=== PATIENT | male | born 1975 | race Caucasian/White ===

== ENCOUNTER 2025-02-26 09:35 | Outpatient (AMB) | payer OTHER, SELFPAY ==
--- OUTSIDE RECORDS SUMMARY | 2024-01-18 09:53 | XMS_ITS | Encounter Summary ---
Author Organization [facility] Address [address] [place] [address] Care Team Providers Care Debone Supervisor Name Role Phone Pcp, No Primary Care Provider Unavailabl e Encounter Details Date Type Department Care Team (Late st Contact Info) Description 01/18/2024 9:53 AM EDT Hospital Encounter [facility] [address] [place] [phone] Neftali Zacarias MD [address] [place], [place] [phone] Social History Tobacco Use Types Packs/Day Years [...] acute right shoulder abnormality. us Armand Valencia RENAL DIALYSIS TECHNICIAN IMG DIAGNOSTIC KIMBERLY GING ORDERABLES Final Result documented in this encounter Visit Diagnoses Not on filedocumented in this encounter Care Teams Debone Supervisor Relationship Specialty Start Date End Date Pcp, No PCP - General General Medicine 01/18/24 documented as of this encounter
--- NOTE | 2025-02-26 09:39 | MHC.PC.OV ---
Vital Signs 02/26/25 09:43 02/26/25 09:45 Height 5 ft 11.65 in Weight 208 lb 8 oz BMI 28.6 BP 124/92 H 122/90 H Blood Pressure Location Rt brachial Rt brachial Position Sitting Sitting Respiration 14 Pulse 73 Pulse Source Pulse Oximeter Temp 98.1 F Temp Source Oral Pulse Oximetry (%) 98 Oxygen Delivery Method Room Air Intake Visit Reasons: DEMONSTRATOR SALES/PErequest Intake Note: New patient visit. Solar Consultant Required: No Tobacco use date assessed: 02/26/25 Dental Screening Dental Screen Date: 02/26/25 Did you have a dental visit in the last 12 months?: No Did you have a dental problem in the last 6 months where you did not have access to dental care?: No Was dental information given to patient?: Patient has dentist HPI HPI Comments History of Present Illness Details The patient is a 49 year old male with a past medical history of hypertension, hyperlipidemia, neck pain presenting to [facility]. Transferring from [facility] Dr Pennington (previously [facility]) CV: on amlodipine, hctz, simvastatin. 122/90. Denies chest pain, shortness of breath. 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 Sometimes getting lightheaded. He discussed stress testing with last pcp but never got scheduled MSK: s/p cervical fusion 2016 Dr Long. stable Colonoscopy 03/2023 due 2032 -Dr Tillman Tdap 03/2023 ROS see HPI PHYSICAL EXAM: GENERAL: Alert and oriented x 3. NAD EYES: EOMI. Anicteric. HENT: Moist mucous membranes. No scleral icterus. No cervical lymphadenopathy. LUNGS: Clear to auscultation bilaterally. CARDIOVASCULAR: Regular rate and rhythm. No murmur. No JVD. ABDOMEN: Soft, non-tender +bs EXTREMITIES: No edema. Non-tender. SKIN: No rashes or lesions. Warm. NEUROLOGIC: No focal neurological deficits. CN II-XII grossly intact PSYCHIATRIC: Cooperative. 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 Current occupational exposures/hazards: No Cognitive needs: No Hearing needs: No Vision needs: No Questionnaire Thrive Questionnaire Date Thrive assessed: 02/23/25 I am a: Patient What is your living situation today?: I have a steady place to live Within the past 12 months, did the food you bought not last and you didn't have the money to get more?: Never true Within the past 12 months, did you worry whether your food would run out before you got money to buy more?: Never true Do you have trouble paying for medicines?: No Do you have trouble getting transportation to medical appointments?: No Do you have trouble paying your heating and electricity bill?: No Do you have trouble taking care of your child, family member or friend?: No Do you have trouble with day-to-day activities such as bathing, preparing meals, shopping, managing finances, etc.?: No Are you currently unemployed and looking for a job?: No Are you interested in more education?: No Please select the resources that you would like help with: None Currently or been in a relationship where the following occur: No concerns reported THRIVE Score: 0 AUDIT C Alcohol Use Questionnaire (AUDIT-C) 1. How often do you have a drink containing alcohol?: Monthly or less 2. How many drinks containing alcohol do you have on a typical day when you are drinking?: 1 or 2 3. How often do you have six or more drinks on one occasion?: Less than monthly Total Score: 2 VANESSA-7 AMB Questionnaire VANESSA-7 Feeling nervous, anxious, or on edge: 0 = Not at all Not being able to stop or control worryin = Not at all Worrying too much about different things: 0 = Not at all Trouble relaxin = Not at all Being so restless that it is hard to sit still: 0 = Not at all Becoming easily annoyed or irritable: 0 = Not at all Feeling afraid as if something awful might happen: 0 = Not at all Total VANESSA-7 score (0-4 normal; 5-9 mild; 10-14 moderate; 15-21 severe): 0 Source: Developed by Drs. Bebo Buckley, Zulay Velásquez, Bruno Pearson and colleagues, with an educational lesia from [employer]. Physical exam (Primary Care) Vital Signs: Last Vital Signs Temp 98.1 F 02/26/25 09:43 Pulse 73 02/26/25 09:43 Resp 14 02/26/25 09:43 BP 122/90 H 02/26/25 09:45 Pulse Ox 98 02/26/25 09:43 Oxygen Delivery Method Room Air 02/26/25 09:43 BMI result Body Mass Index 28.6 Tobacco/Smoking Status: Tobacco use Status Tobacco use date assessed 02/26/25 02/26/25 09:46 Patient Tobacco Use Status Never used Tobacco 02/26/25 09:46 e-Cigarette/Vaping Use Never Used 02/26/25 09:46 Thrive Assessment: Date of Thrive Assessment Date Thrive assessed 02/23/25 02/26/25 09:46 Currently or been in a relationship where the following occur: No concerns reported Coding Level of Care Code New Pt Level 4 (75967) Complex EM visit Add On G2211 Diagnoses Primary hypertension I10 Hypertension type: primary hypertension Hyperlipidemia, unspecified hyperlipidemia type E78.5 Hyperlipidemia type: unspecified Light-headed R42 Assessment & Plan Assessment & Plan (1) Hypertension: Code(s): I10 - Essential (primary) hypertension Category: Medical Qualifiers: Hypertension type: primary hypertension Qualified Code(s): I10 - Essential (primary) hypertension (2) Hyperlipidemia: Code(s): E78.5 - Hyperlipidemia, unspecified Category: Medical Qualifiers: Hyperlipidemia type: unspecified Qualified Code(s): E78.5 - Hyperlipidemia, unspecified (3) Light-headed: Code(s): R42 - Dizziness and giddiness Category: Medical Plan 49 year old to establish care Past medical, surgical, social reviewed Lightheaded-discussed trial off diuretic. Increase amlodipine to 10mg daily. EKG reassuring. Stress test ordered HTN-diastolic elevation. med changes as above. patient will monitor bp at home with changes. Labs ordered Orders: Orders Complete Blood Count Auto Diff Today E78.5 - Hyperlipidemia, unspecified, I10 - Essential (primary) hypertension, R35.89 - Other polyuria, R42 - Dizziness and giddiness, Z12.5 - Encounter for screening for malignant neoplasm of prostate Prostate Specific Antigen Today E78.5 - Hyperlipidemia, unspecified, I10 - Essential (primary) hypertension, R35.89 - Other polyuria, R42 - Dizziness and giddiness, Z12.5 - Encounter for screening for malignant neoplasm of prostate Comprehensive Met. Panel Today E78.5 - Hyperlipidemia, unspecified, I10 - Essential (primary) hypertension, R35.89 - Other polyuria, R42 - Dizziness and giddiness, Z12.5 - Encounter for screening for malignant neoplasm of prostate CA stress test Today R42 - Dizziness and giddiness IRON PROFILE Today E78.5 - Hyperlipidemia, unspecified, I10 - Essential (primary) hypertension, R35.89 - Other polyuria, R42 - Dizziness and giddiness, Z12.5 - Encounter for screening for malignant neoplasm of prostate Hemoglobin A1c Today E78.5 - Hyperlipidemia, unspecified, I10 - Essential (primary) hypertension, R35.89 - Other polyuria, R42 - Dizziness and giddiness, Z12.5 - Encounter for screening for malignant neoplasm of prostate Medications: New amlodipine 10 mg PO DAILY 90 tabs 3RF simvastatin 20 mg PO DAILY 90 tabs 3RF On Hold hydrochlorothiazide Hold Comment: Doctor's Order 25 mg PO DAILY 90 tabs 0RF
[2025-02-26 09:43] VITALS: BP 124/92; PULSE 73; RESP 14; TEMP 36.7; O2SAT 98; BMI 28.6
[2025-02-26 09:45] VITALS: BP 122/90
--- OUTSIDE RECORDS SUMMARY | 2025-02-26 11:16 | XMS_ITS | Encounter Summary ---
Author Organization [facility] Address [address] [place] [address] [place] [phone] Phone Care Team Providers Care Passenger Flagman Name Role Phone Ernestina Pennington MD Primary Care Provider + Encounter Details Date Type Department Care Team (Late st Contact Info) Description 08/21/2022 Procedure Pass [facility] Endoscopy Admitting Dept Virtual Department [address] [place] [address] Social History Tobacco Use Types Packs/Day Years Used Date Smoking Tobacco: Never Smokeless Tobacco: Never Alcohol Use Standard Drinks/Week Comments Yes 3 (1 standard drink = 0.6 oz pur e alcohol) Intimate Partner Violence Answer Date R ecorded Are you denied basic needs s uch as food, clothing, or medical care? No 08/21/2022 In the past 12 months have y ou been in a relationship with a person who hurts, threatens, or tries to control you? No 08/21/2022 Are you denied basic needs s uch as food, clothing, or medical care? No 08/21/2022 In the past 12 months have y ou been in a relationship with a person who hurts, threatens, or tries to control you? No 08/21/2022 Sex and Gender Information Value Date Recorded Sex Assigned at Not on file Legal Sex Male 12:49 PM EST Gender Identity Not on file Sexual Orientation Not on file documented as of this encounter Plan of Treatment Not on file documented as of this encounter Visit Diagnoses Not on filedocumented in this encounter Care Teams Passenger Flagman Relationship Specialty Start Date End Date Ernestina Pennington MD [email or web address] PCP - General Family Medicine 04/22/22 documented as of this encounter Additional Source Comments The information contained in this document represents components of the legal health record. It is not the complete legal health record.[facility]
--- OUTSIDE RECORDS SUMMARY | 2025-02-26 11:16 | XMS_ITS | Clinical Summary ---
Author Organization [facility] Address [address] [place] [address] Care Team Providers Care Yield Improvement Engineer Name Role Phone Pcp, No Primary Care Provider Unavailabl e Allergies No known active allergies Medications amLODIPine (NORVASC) 5 MG tablet 4 Active simvastatin (ZOCOR) 20 MG tablet 4 Active hydroCHLOROthia zide (HYDRODIURIL) 25 MG tablet 4 Active methocarbamol (ROBAXIN) 750 MG tabletIndicatio ns:Acute right-sided low back pain without sciatica Take 1 tablet (750 mg total) by mouth as needed for muscle spasms (Do not take it when operating equipment. Medication is drowsy). 15 tablet 4 Active ibuprofen (MOTRIN) 400 MG tabletIndicatio ns:Injury of right shoulder, initial encounter,Acute right-sided low back pain without sciatica Take 1 tablet (400 mg total) by mouth 4 times daily (every 6 hours) as needed for mild pain or moderate pain. 30 tablet 4 Active Active Problems No known active problems Social History Tobacco Use Types Packs/Day Years Used Date Smoking Tobacco: Never Assessed Sex and Gender Information Value Date Recorded Sex Assigned at Not on file Legal Sex Male 8:45 AM EDT Gender Identity Not on file Sexual Orientation Not on file Last Filed Vital Signs Vital Sign Reading Time Taken Comments Blood Pressure 143/98 01/25/2024 8:05 AM EDT Pulse 75 01/25/2024 8:05 AM EDT Temperature 36.7 C (98.1 F) 01/25/2024 8:05 AM EDT Respiratory Rate - - Oxygen Saturation 97% 01/25/2024 8:05 AM EDT Inhaled Oxygen Concentration - - Weight - - Height - - Body Mass Index - - Plan of Treatment Health Maintenance Due Date Last Done Comments Hepatitis C Virus Screening 1975 HIV Screening 10/06/1987 DTaP/Tdap/Td Vaccines (1 - Tdap) 1993 Hepatitis B Vaccines (1 of 3 - 19+ 3-dose series) 06/1993 Colonoscopy 10/06/2019 Pneumococcal Vaccines 50+ (1 of 1 - PCV) 2024 Zoster (Shingles) Vaccine (1 of 2) 2024 Influenza Vaccine 01/05/2025 COVID-19 Vaccine ( - season) 2025 Care Teams Yield Improvement Engineer Relationship Specialty Start Date End Date Pcp, No PCP - General General Medicine 01/18/24
--- OUTSIDE RECORDS SUMMARY | 2025-02-26 11:16 | XMS_ITS | Clinical Summary ---
Author Organization [facility] Address [address] [facility] [address] [place] [phone] Phone Care Team Providers Care Furniture Shampooer Name Role Phone Ernestina Pennington MD Primary Care Provider + Allergies No known active allergies Medications amLODIPine (NORVASC) 10 MG tablet Take 5 mg by mouth daily. 07/01/2022 Active hydroCHLOROthiaz evelin (HYDRODIURIL) 25 MG tablet Take 25 mg by mouth daily. 08/04/2022 Active simvastatin (ZOCOR) 20 MG tablet 06/17/2022 Active Social History Tobacco Use Types Packs/Day Years Used Date Smoking Tobacco: Never Smokeless Tobacco: Never Tobacco Cessation:Counseling Given: Not Answered Alcohol Use Standard Drinks/Week Comments Yes 3 (1 standard drink = 0.6 oz pur e alcohol) Education Answer Date Recorded Are you interested in more education? Not on hailee e 10/03/2022 Are you concerned about learning? Not on file 10/03/2022 No 10/03/2022 No 10/03/2022 Digital Access Answer Date Recorded No 11/01/2022 No 11/01/2022 No 11/01/2022 Reliable internet access at home? Not on file 11/01/2022 Device with a working camera? Not on file Intimate Partner Violence Answer Date R ecorded [...] Sign Reading Time Taken Comments Blood Pressure 113/71 08/21/2022 1:51 PM EDT Pulse 66 08/21/2022 1:51 PM EDT Temperature 36 C (96.8 F) 08/21/2022 1:37 PM EDT Respiratory Rate 17 08/21/2022 1:51 PM EDT Oxygen Saturation 95% 08/21/2022 1:51 PM EDT Inhaled Oxygen Concentration - - Weight 99.8 kg (220 lb) 08/20/2022 8:30 AM EDT Height 182.9 cm (6') 08/20/2022 8:30 AM EDT Body Mass Index 29.84 08/20/2022 8:30 AM EDT Plan of Treatment Health Maintenance Due Date Last Done Comments Adult Td,Tdap Booster 1974 LIPID PANEL 1974 POTASSIUM LEVEL 1974 DEPRESSION SCREENING 1986 HEPATITIS C SCREENING 1992 HIV ONE-TIME SCREENING (18-6 5 YEARS) 1992 SCREENING FOR DIABETES 2009 COLOGUARD 10/06/2019 FIT TEST 10/06/2019 FOBT 10/06/2019 SIGMOIDOSCOPY 10/06/2019 VIRTUAL COLONOSCOPY 10/06/2019 PNEUMOCOCCAL VACCINES (50+ years) (1 of 1 - PCV) 2024 ZOSTER VACCINES (1 of 2) 2024 INFLUENZA VACCINE (#1) 2025 COVID-19 VACCINE (3 - 2024-2 6 season) 2025 11/06/2020, 10/09/2020 COLONOSCOPY 08/21/2032 08/21/2022 COLORECTAL CANCER SCREENING 08/21/2032 SMOKING STATUS SCREENING (On ce After 26 Yrs) Completed 08/20/2022 HEPATITIS A VACCINES Aged Out No long er eligible based on patient's age to complete this topic HIB VACCINES Aged Out No longer eligi ble based on patient's age to complete this topic MENINGOCOCCAL VACCINES (ACWY) Aged Out No longer eligible based on patient's age to complete this topic MENINGOCOCCAL VACCINES (B) Aged Out N o longer eligible based on patient's age to complete this topic Medical Devices Not on file Procedures Procedure Name Priority Date/Time Associated Diagnosis Comments ENDOSCOPY, COLON 08/21/2022 1:07 PM EDT from Last 3 Months or Most Recently Relevant to Health Maintenance Results * ENDOSCOPY, COLON (08/21/2022 1:07 PM EDT) Narrative Transcriptions Watson Braun MD - 08/21/2022 1:07 PM EDT [facility] Patient Name: Abrahan Abelardo Attending MD:: WATSON BRAUN MD, Procedure Date: 08/21/2022 1:07 PM Date of : 1975 Age: 46 Admit Type: Outpatient Gender: Male Room: [place] [address] Referring MD: Ernestina Pennington MD Exam Type: Colonoscopy Indications: Screening for colorectal malignant neoplasm Medications: Monitored Anesthesia Care Procedure: Informed consent was obtained from the patientafter discussion of the indications, limitations, alternatives, benefits, and risks of the procedure. Risks specifically discussed include but are not limited to medication reactions, missed lesions, bleeding, perforation, or the need for emergent surgery. Throughout the procedure, the patient's blood pressure, pulse, end-tidal CO2, and oxygensaturations were monitored continuously. The Olympus adult variable colonoscope [id number] #1 was introduced through the anus and advanced to the terminal ileum, with identification of theappendiceal orifice and IC valve. The colonoscopy was performed without difficulty. The patient tolerated the procedure well. The quality of the bowelpreparation was good. The terminal ileum, ileocecal valve, appendiceal orifice, and rectum werephotographed. Complications: No immediate complications. Estimated blood loss:None. Findings: The terminal ileum appeared normal. Examination of the right colon was repeated in retroflexion and again in NBI. Retroflexion wasalso performed in the rectum. Multiple diverticula were found in the sigmoidcolon. A 4 mm hyperplastic polyp was found in the sigmoid colon. The polyp was sessile. The polyp was removed with a cold snare. Resection and retrieval were complete. Internal hemorrhoids were found duringretroflexion. The hemorrhoids were small. The exam was otherwise without abnormality. Impression: - The examined portion of the ileum was normal. - Diverticulosis in the sigmoid colon. - One 4 mm polyp in the sigmoid colon, removed witha cold snare. Resected and retrieved. - Internal hemorrhoids. - The examination was otherwise normal. Recommendation: - Patient has a contact number available for emergencies. The signs and symptoms of potential delayed complications were discussed with thepatient. Return to normal activities tomorrow. Written discharge instructions were provided to thepatient. - Await pathology results. - Repeat colonoscopy for surveillance based on pathology results. (10 years assuming polyp is hyperplastic) Watson Braun WATSON BRAUN MD 08/21/2022 1:34:19 PM This report has been signed electronically. Number of Addenda: 0 Note Initiated On: 08/21/2022 1:07 PM Procedure Code(s): --- Professional --- 90511, Colonoscopy, flexible; with removal of tumor(s), polyp(s), or other lesion(s) by snare technique --- Technical --- 52521, Colonoscopy, flexible; with removal of tumor(s), polyp(s), or other lesion(s) by snare technique CPT copyright 2021 [employer]. All rights reserved. The codes documented in this report are preliminary and upon flight test mechanic reviewmay be revised to meet current compliance requirements. Procedure Date: 08/21/2022 1:07:39 PM [address] [place] [address] Ernestina Pennington MD GI PROCEDURE ORDERABLES Final Result from Last 3 Months or Most Recently Relevant to Health Maintenance Insurance [address] [place], [place] [address] Care Teams Furniture Shampooer Relationship Specialty Start Date End Date Ernestina Pennington MD [email or web address] PCP - General Family Medicine 04/22/22 Additional Source Comments The information contained in this document represents components of the legal health record. It is not the complete legal health record.[facility]
--- OUTSIDE RECORDS SUMMARY | 2025-02-26 11:16 | XMS_ITS ---
[facility] Name [facility] Unknown Problems Problem Status Onset Date Problem Type Date of Resoluti on Source Strain of lumbar region, subsequent encounter active EncounterDiagnosisAct HHCCT Injury of right shoulder, subsequent encounter active EncounterDiagnosisAct CCT Encounters Encounter Type Encounter Reason Primary Diagnosis Location Date Ambulatory Work Related Injury Work Related Injury [facility] 01/25/2024 Ambulatory [facility] 01/18/2024 Ambulatory Work Related Injury Work Related Injury [facility] 01/18/2024 Care Team Organization Name Specialty Phone Email Start Date End [facility] 01/18/2024 08/23/2024 [facility] NO PCP Primary Care 01/18/2024 [facility] 01/18/2024
== END 2025-02-26 10:31 | disposition home or self-care (01) ==
LOC: HO.HMCFM 09:35
PROVIDERS: PCP Internal Medicine; Visit Provider Internal Medicine
DX: I10 Essential (primary) hypertension (principal); E78.5 Hyperlipidemia, unspecified; R42 Dizziness and giddiness

== ENCOUNTER 2025-03-01 08:04 | Outpatient (REF) | payer OTHER, SELFPAY ==
--- OUTSIDE RECORDS SUMMARY | 2024-01-18 09:53 | XMS_ITS | Encounter Summary ---
Author Organization [facility] Address [address] [place] [address] Care Team Providers Care Eyeglass Lens Generator Name Role Phone Pcp, No Primary Care Provider Unavailabl e Encounter Details Date Type Department Care Team (Late st Contact Info) Description 01/18/2024 9:53 AM EDT Hospital Encounter [facility] [address] [place] [phone] Neftali Zacarias MD [address] [place], [place] [phone] Social History Tobacco Use Types Packs/Day Years [...] acute right shoulder abnormality. us Armand Valencia BOX BRANDER IMG DIAGNOSTIC KIMBERLY GING ORDERABLES Final Result documented in this encounter Visit Diagnoses Not on filedocumented in this encounter Care Teams Eyeglass Lens Generator Relationship Specialty Start Date End Date Pcp, No PCP - General General Medicine 01/18/24 documented as of this encounter
--- OUTSIDE RECORDS SUMMARY | 2025-03-01 08:14 | XMS_ITS | Clinical Summary ---
Author Organization [facility] Address [address] [place] [phone] Phone Care Team Providers Care Jackspooler Name Role Phone Ernestina Pennington MD Primary [...] Braun MD - 08/21/2022 1:07 PM EDT [facility] Patient Name: Abrahan Abelardo Attending MD:: WATSON BRAUN MD, Procedure Date: 08/21/2022 1:07 PM Date of : 1975 Age: 46 Admit Type: Outpatient Gender: Male Room: [place] [address] Referring MD: Ernestina Pennington MD Exam Type: [...] monitored continuously. The Olympus adult variable colonoscope [id number] #1 was introduced through the anus and [...] 1:07 PM Procedure Code(s): --- Professional --- 13998, Colonoscopy, flexible; with removal of tumor(s), polyp(s), or other lesion(s) by snare technique --- Technical --- 52137, Colonoscopy, flexible; with removal of tumor(s), polyp(s), or other lesion(s) by snare technique CPT copyright 2021 [employer]. All rights reserved. The codes documented in this report are preliminary and upon manager business banking reviewmay be revised to meet current compliance requirements. Procedure Date: 08/21/2022 1:07:39 PM [address] [place] [address] Ernestina Pennington MD GI PROCEDURE ORDERABLES Final Result from Last 3 Months or Most Recently Relevant to Health Maintenance Insurance [address] [place], [place] [address]O [facility] Care Teams Jackspooler Relationship Specialty Start Date End Date Ernestina Pennington MD [email or web address] PCP - General Family Medicine 04/22/22 Additional Source Comments The information contained in this document represents components of the legal health record. It is not the complete legal health record.[facility]
--- OUTSIDE RECORDS SUMMARY | 2025-03-01 08:15 | XMS_ITS | Clinical Summary ---
Author Organization [facility] Address [address] [place] [address] Care Team Providers Care Livery Car Driver Name Role Phone Pcp, No Primary Care [...] Vaccine ( - season) 2025 Care Teams Livery Car Driver Relationship Specialty Start Date End Date Pcp, No PCP - General General Medicine 01/18/24
--- OUTSIDE RECORDS SUMMARY | 2025-03-01 08:15 | XMS_ITS | Encounter Summary ---
Author Organization [facility] Address [address] [place] [address] [place] [phone] Phone Care Team Providers Care Maintenance Helper Utility Engineer Name Role Phone Ernestina Pennington MD Primary Care Provider + Encounter Details Date Type Department Care Team (Late st Contact Info) Description 08/21/2022 Procedure Pass [facility] Endoscopy Admitting Dept Virtual Department [address] [place] [address] Social History Tobacco Use Types Packs/Day Years [...] on filedocumented in this encounter Care Teams Maintenance Helper Utility Engineer Relationship Specialty Start Date End Date Ernestina Pennington MD [email or web address] PCP - General Family Medicine 04/22/22 documented as of this encounter Additional Source Comments The information contained in this document represents components of the legal health record. It is not the complete legal health record.[facility]
[2025-03-01 11:21] LABS: MANUAL DIFF FLAG NO
[2025-03-01 11:30] LABS: Hematocrit 40.8 % (42.0-52.0); Hemoglobin 13.9 g/dl (14.0-18.0); Imm Gran Abs Auto 0.02 X10*3/uL (0.00-0.03); Imm Gran Pct Auto 0.4 % (0.0-0.4); Lymphocytes Absolute Auto 1.2 X10*3/uL (1.2-4.9); Mean Corpuscular HGB Conc 34.1 g/dl (31.0-36.0); Mean Corpuscular Hemoglobin 31.5 pg (27.0-33.0); Mean Corpuscular Volume 92.5 fL (80.0-98.0); NRBC Abs Auto 0.000 X10*3/uL (0.0-0.012); NRBC Pct Auto 0.0 /100WBC (0.0-0.2); Platelet Count 269 X10*3/uL (160-400); Red Blood Count 4.41 X10*6/uL (4.60-5.80); White Blood Count 5.4 X10*3/uL (4.8-10.8)
[2025-03-01 11:55] LABS: Alanine Aminotransferase 83 U/L (0-40); Albumin Level 4.4 g/dL (3.5-5.0); Alkaline Phosphatase 70 U/L (39-117); Anion Gap 9 (12-20); Aspartate Amino Transferase 41 U/L (5-37); Blood Urea Nitrogen 13 mg/dL (9-16); Calcium 8.6 mg/dL (8.4-10.2); Carbon Dioxide 28 mmol/L (22-29); Chloride 110 mmol/L (96-108); Estimated Glomerular Filt Rate > 60; Iron 108 mcg/dL (45-160); Percent Iron Saturation 44 % (15-50); Potassium 4.4 mmol/L (3.3-5.1); Sodium 143 mmol/L (135-145); Total Iron Binding Capacity 247 mcg/dL (228-428); Total Protein 6.9 g/dL (6.5-8.0); Unsaturated Iron Binding 139 ug/dL
[2025-03-01 12:26] LABS: Prostate Specific Antigen 0.34 ng/mL (<0.05-4.0)
== END 2025-03-01 08:05 | disposition home or self-care (01) ==
LOC: HO.WFDLDS 08:04
PROVIDERS: Visit Provider Internal Medicine
DX: Z12.5 Encounter for screening for malignant neoplasm of prostate (principal); Z13.1 Encounter for screening for diabetes mellitus; R42 Dizziness and giddiness; I10 Essential (primary) hypertension; E78.5 Hyperlipidemia, unspecified; R35.89 Other polyuria
CPT/HCPCS: 36415; 80053; 83036; 83540; 84153; 85025

== ENCOUNTER → 2025-04-20 07:41 | Outpatient (REF) | payer OTHER, SELFPAY ==
--- OUTSIDE RECORDS SUMMARY | 2024-01-18 08:53 | XMS_ITS | Encounter Summary ---
Author Organization [facility] Address [address] [place] [address] Care Team Providers Care Space And Missile Defense Operations Name Role Phone Pcp, No Primary Care Provider Unavailabl e Encounter Details Date Type Department Care Team (Late st Contact Info) Description 01/18/2024 9:53 AM EDT Hospital Encounter [facility] [address] [place] [phone] Neftali Zacarias MD [address] [place], [place] [id number] Social History Tobacco Use Types Packs/Day Years Used Date Smoking Tobacco: Never Assessed Sex and Gender Information Value Date Recorded Sex Assigned at Not on file Legal Sex Male 8:45 AM EDT Gender Identity Not on file Sexual Orientation Not on file documented as of this encounter Plan of Treatment Not on file documented as of this encounter Procedures Procedure Name Priority Date/Time Associated Diagnosis Comments XR SHOULDER 2+ VIEWS-RIGHT STAT 01/18/2024 10:03 AM EDT Injury of right shoulder, initial encounter documented in this encounter Results * XR Shoulder 2+ views-Right (01/18/2024 10:03 AM EDT) Anatomical Region Laterality Modality Shoulder Right Computed Radiogr aphy 01/18/2024 10:0 4 AM EDT Impressions 01/18/2024 10:05 AM EDT 1. No acute right shoulder abnormality. Narrative 01/18/2024 10:05 AM EDT EXAM: XR SHOULDER 2+ VIEWS-RIGHT on 01/18/2024 9:53 AM CLINICAL HISTORY: R shoulder injury. COMPARISONS: None TECHNIQUE: AP internal and external rotation and scapular Y radiographs of the right shoulder were obtained. FINDINGS: Alignment is normal. No fracture. No deformity. Joint spaces are normal. Soft tissues are unremarkable. Procedure Note Akira Klein MD - 01/18/2024 EXAM: XR SHOULDER 2+ VIEWS-RIGHT on 01/18/2024 9:53 AM CLINICAL HISTORY: R shoulder injury. COMPARISONS: None TECHNIQUE: AP internal and external rotation and scapular Y radiographsof the right shoulder were obtained. FINDINGS: Alignment is normal. No fracture. No deformity. Joint spaces arenormal. Soft tissues are unremarkable. IMPRESSION: 1. No acute right shoulder abnormality. us Armand Valencia FOOD PRODUCTION MANAGER IMG DIAGNOSTIC KIMBERLY GING ORDERABLES Final Result documented in this encounter Visit Diagnoses Not on filedocumented in this encounter Care Teams Space And Missile Defense Operations Relationship Specialty Start Date End Date Pcp, No PCP - General General Medicine 01/18/24 documented as of this encounter
--- OUTSIDE RECORDS SUMMARY | 2025-04-20 07:43 | XMS_ITS | Clinical Summary ---
Author Organization [facility] Address [address] [place] [address] Care Team Providers Care Bill Poster Installer Name Role Phone Pcp, No Primary Care [...] 2) 2024 Influenza Vaccine 01/05/2025 COVID-19 Vaccine (1 - season) 2025 RSV Vaccine 50 years and old er and Patients (1 - 1-dose 75+ series) 2049 Care Teams Bill Poster Installer Relationship Specialty Start Date End Date Pcp, No PCP - General General Medicine 01/18/24
--- OUTSIDE RECORDS SUMMARY | 2025-04-20 07:43 | XMS_ITS | Clinical Summary ---
Author Organization [facility] Address [address] [place] [phone] Phone Care Team Providers Care Supervisor Pipe Joints Name Role Phone Ernestina Pennington MD Primary [...] COLONOSCOPY 08/21/2032 08/21/2022 COLORECTAL CANCER SCREENING 08/21/2032 RSV VACCINE (1 - 1-dose 75+ series) 2049 SMOKING STATUS SCREENING (On ce After 26 Yrs) Completed 08/20/2022 HEPATITIS A VACCINES Aged Out No long er eligible based on patient's age to complete this topic HIB VACCINES Aged Out No longer eligi ble based on patient's age to complete this topic IPV VACCINES Aged Out No longer eligi ble [...] Braun MD - 08/21/2022 1:07 PM EDT [facility] Patient Name: Abrahan Zhou Attending MD:: WATSON BRAUN MD, Procedure Date: 08/21/2022 1:07 PM Date of : 1975 Age: 46 Admit Type: Outpatient Gender: Male Room: [place] [address] Referring MD: Ernestina Pennington MD Exam Type: [...] monitored continuously. The Olympus adult variable colonoscope [id number] #1 was introduced through the anus and [...] 1:07 PM Procedure Code(s): --- Professional --- 92563, Colonoscopy, flexible; with removal of tumor(s), polyp(s), or other lesion(s) by snare technique --- Technical --- 73181, Colonoscopy, flexible; with removal of tumor(s), polyp(s), or other lesion(s) by snare technique CPT copyright 2021 [employer]. All rights reserved. The codes documented in this report are preliminary and upon catering cook reviewmay be revised to meet current compliance requirements. Procedure Date: 08/21/2022 1:07:39 PM [address] [place], [place] [id number] Ernestina Pennington MD GI PROCEDURE ORDERABLES Final Result from Last 3 Months or Most Recently Relevant to Health Maintenance Insurance [address] [place], [place] [address] [place], [place] [address] [place], [place] [address] Care Teams Supervisor Pipe Joints Relationship Specialty Start Date End Date Ernestina Pennington MD [email or web address] PCP - General Family Medicine 04/22/22 Additional Source Comments The information contained in this document represents components of the legal health record. It is not the complete legal health record.[facility]
--- OUTSIDE RECORDS SUMMARY | 2025-04-20 07:43 | XMS_ITS | Encounter Summary ---
Author Organization [facility] Address [address] [place] [address] [place] [phone] Phone Care Team Providers Care Senior Sharepoint Architect Name Role Phone Ernestina Pennington MD Primary Care Provider + Encounter Details Date Type Department Care Team (Late st Contact Info) Description 08/21/2022 Procedure Pass [facility] Endoscopy Admitting Dept Virtual Department [address] [place] [address] Social History Tobacco Use Types Packs/Day Years [...] on filedocumented in this encounter Care Teams Senior Sharepoint Architect Relationship Specialty Start Date End Date Ernestina Pennington MD [email or web address] PCP - General Family Medicine 04/22/22 documented as of this encounter Additional Source Comments The information contained in this document represents components of the legal health record. It is not the complete legal health record.[facility]
--- NOTE | 2025-04-20 07:45 | CA_ITS ---
Acquisition Time: 2025-04-20 07:55:58 Total Exercise Time: 00:09:28 Test Indications: R42 Medications: SEE H&P Protocol: ALFRED Max HR: 146 BPM 85% of Pred: 170 BPM Max BP: 200/70 mmHG Max Work Load: 10.8 METS Exercise stress test with exercise 9 mins 28 secs of Alfred Protocol, achieving 85% MPHR, with reports of dizziness when stopping treadmill, no chest pain, with isolated PVCs, with normotenisve response to exercise. Without any EKG changes meeting criteria for ischemia. In recovery, dizziness improved. Breathing improved to baseline. Test reviewed with Dr. Flores. Referred By: Lakeisha Siddiqi Electronically Signed By: Louie Bond
== END ==
LOC: HO.CARD 07:41
PROVIDERS: PCP Internal Medicine; Visit Provider Internal Medicine
DX: R42 Dizziness and giddiness (principal)
CPT/HCPCS: 93017

== ENCOUNTER → 2025-04-20 07:45 | Outpatient (BNV) | payer OTHER, SELFPAY | PROVIDERS: PCP Internal Medicine | DX: I49.3 Ventricular premature depolarization (principal); R42 Dizziness and giddiness | CPT/HCPCS: 93016; 93018 ==